=== PATIENT | male | born 1980 | race Two or more races ===

== ENCOUNTER 2021-03-21 17:30 | Inpatient (IN) | payer MEDICAID ==
[~2021-03-21] VITALS: Ht 172.7 cm; Wt 67.1 kg
[2021-03-21] MEDS ORDERED: IV NORMAL SALINE 1000 ML BAG IV ONE ×2 (17:45→18:30)
[2021-03-21 18:01] LABS: HEMATOCRIT 29.5 % (36.7-47.1); MEAN CORPUSCULAR HEMOGLOBIN 28.5 uug (23.8-33.4); MEAN CORPUSCULAR VOLUME 83.9 fL (73.0-96.2); PLATELET COUNT (AUTO) 286 K/uL (152-348)
[2021-03-21 18:12] LABS: CREATININE 0.7 mg/dL (0.6-1.3); POTASSIUM 4.5 mmol/L (3.5-5.1)
[2021-03-21 18:17] LABS: ETHANOL < 3 MG/DL (0-0)
[2021-03-21 18:23] LABS: BILIRUBIN,DIRECT 0.1 mg/dL (0.0-0.2); BILIRUBIN,TOTAL 0.4 mg/dL (0.2-1.0); TOTAL PROTEIN, SERUM 5.9 g/dL (6.4-8.2)
[2021-03-21] MEDS ORDERED: LACTULOSE 20 G/30 ML LIQUID UDC PO ONE (18:45)
--- NOTE | 2021-03-21 18:50 | NUR ---
Pt out of Er for CT scan.
[2021-03-21] MEDS ORDERED: LACTULOSE 20 G/30 ML LIQUID UDC ONE (19:15)
[2021-03-21] MEDS ORDERED: ONDANSETRON 4 MG/2 ML VIAL IV PRN (20:30)
--- NOTE | 2021-03-21 22:00 | NUR ---
paged Dr. Snowden regarding HR 120s sinus tach. states he will order IVF infusion at a slow rate
[2021-03-22] MEDS: IV 1/2NS 1000 ML 1,000 ML IV PRN ×2 (00:31→21:12)
--- NOTE | 2021-03-22 00:33 | NUR ---
patient's son (Goldy Manuel) phone# [phone]
--- NOTE | 2021-03-22 00:54 | NUR ---
Patient is resting in bed. Patient is pending inpatient transfer but no bed available at this time. Pt. admitted to Telemetry, under care of Dr. Sp Triana Dx: Altered Mental Status Belongs List completed
[2021-03-22 06:35] LABS: ALANINE AMINOTRANSFERASE 28 U/L (16-63); ALKALINE PHOSPHATASE 60 U/L (50-136); ASPARTATE AMINOTRANSFERASE 16 U/L (15-37); BILIRUBIN,TOTAL 0.1 mg/dL (0.2-1.0); CARBON DIOXIDE 25 mmol/L (21-32); CHLORIDE 106 mmol/L (98-107); CHOLESTEROL 122 mg/dL (<200); CREATININE 0.6 mg/dL (0.6-1.3); GLUCOSE 134 mg/dL (74-106); HDL CHOLESTEROL 20 mg/dL (40-60); IRON, SERUM 224 ug/dL (50-175); MAGNESIUM 2.1 mg/dL (1.8-2.4); POTASSIUM 4.2 mmol/L (3.5-5.1); TOTAL PROTEIN, SERUM 4.6 g/dL (6.4-8.2); TRIGLYCERIDES 406 MG/DL (30-150); UREA NITROGEN, BLOOD 43 mg/dL (7-18)
[2021-03-22 06:44] LABS: PHOSPHOROUS 3.4 mg/dL (2.5-4.9)
[2021-03-22] MEDS: PANTOPRAZOLE SODIUM 40 MG TABLET.DR PO SCH (07:00)
[2021-03-22 07:26] LABS: LIPASE 106 U/L (73-393)
--- NOTE | 2021-03-22 07:49 | NUR ---
PT IS IN BED #2A. PT WAS CLEANED IN BED AFTER B/M. PT IS SLEEPING NOW COMFORTABLY IN BED.
[2021-03-22] MEDS ORDERED: PANTOPRAZOLE SODIUM 40 MG TABLET.DR PO ONE (08:26)
[2021-03-22 08:32] LABS: MEAN CORPUSCULAR HEMOGLOBIN 28.9 uug (23.8-33.4); MEAN CORPUSCULAR VOLUME 84.7 fL (73.0-96.2); PLATELET COUNT (AUTO) 223 K/uL (152-348)
[2021-03-22 08:53] LABS: HEMATOCRIT 17.7 % (36.7-47.1)
--- NOTE | 2021-03-22 09:03 | NUR ---
DR BERNARD HERNANDEZ WAS NOTIFIED WITH PT's CRITICAL BLOOD TEST RESULTS.
[2021-03-22] MEDS: LACTULOSE 20 G/30 ML LIQUID UDC PO SCH ×2 (09:19→21:11)
[2021-03-22] MEDS ORDERED: LACTULOSE 20 G/30 ML LIQUID UDC ONE (09:33)
--- NOTE | 2021-03-22 12:05 | NUR ---
DR DIANA EVALUTED THE PT. DR CLARK WAS CALLED FOR CONSULT ACCORDING TO DR DIANA REQUEST.
[2021-03-22 16:02] LABS: *AMPHETAMINE, URINE POSITIVE (NEGATIVE); *CANNABINOID, URINE NEGATIVE (NEGATIVE); *COCCAINE, URINE NEGATIVE (NEGATIVE); *OPIATE, URINE NEGATIVE (NEGATIVE); *PHENCYCLIDINE SCREEN,URINE NEGATIVE (NEGATIVE)
[2021-03-22 16:31] LABS: LYMPHOCYTES % (MANUAL) 21 % (20-40); MONOCYTES % (MANUAL) 6 % (2-10); NEUTROPHILS % (MANUAL) 73 % (42-75)
--- NOTE | 2021-03-22 17:45 | NUR ---
TRANSFUSION OF 1 PRBC WAS PERFORMED ACCORDING TO DR ODELL AND DR RIVERS ORDERS. PT TOLERATED TO BLOOD TRANSFUSION WITHOUT COMPLICATIONS. SEE BLOOD TRANSFUSION RECORDS.
--- NOTE | 2021-03-22 17:45 | NUR ---
REPORT WAS GIVEN TO FURNITURE CRATER. PT WAS TRANSFERED TO ROOM #[id number].
--- NOTE | 2021-03-22 18:15 | NUR ---
PT was admitted from ER to Tele transported in ER bed. PT is AAOx4 Maltese speaking with some Czech. PT S/P Blood transfusion 1 unit RBC in ER no Adverse reaction for H&H of 6.0 17.4 and noted V/S taken PT is SR tachy safety measures in place bed in low position , call light at reach
[2021-03-22] MEDS: BLOOD SUGAR DIAGNOSTIC 1 EACH STRIP VI SCH ×2 (18:34→23:52)
[2021-03-22 18:58] VITALS: BP 118/73
[2021-03-22 20:00] VITALS: BP 127/77
--- NOTE | 2021-03-22 20:00 | NUR ---
Received patient lying in bed. Awake and oriented X4, but appears to be lethargic. Pt is swazi speaking with limited Polish. 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 Established nurse-patient rapport. Oriented patient to room, bed and call light button. On telemonitor, showing sinus tachycardia with HR of 124bpm. IV access on L UA 18 gauge, patent and intact. Started on IVF, 0.45% NS at 60cc/hr. No skin issue noted. Safety precautions initiated. Call light button and bedside table with reach. Will continue to monitor.
[2021-03-23] VITALS (16 sets, daily range): BP systolic 109–141; BP diastolic 46–64
[2021-03-23] MEDS: MORPHINE SULFATE 2 MG/1 ML DISP.SYRIN IV PRN (00:42)
[2021-03-23] MEDS: BLOOD SUGAR DIAGNOSTIC 1 EACH STRIP VI SCH ×3 (06:00→17:21)
[2021-03-23] MEDS: PANTOPRAZOLE SODIUM 40 MG TABLET.DR PO SCH (06:04)
--- NOTE | 2021-03-23 06:05 | NUR ---
Patient slept through the night. Patient is confused and lethargic. Per [employer], patient was seen kneeling on the bed, grabbing on to side rail. Noted to be very pale and diaphoretic, rapid response team was activated. No resuscitation intervention was done as pt had normal V/S and responsive. V/S taken and within normal limits, however, HR was 120bpm. Sinus Tachy on tele. Partial bed bath given by [employer]. IV access was dislodged. Will attempt to reinsert. Refused AM meds. Will endorse to day shift.
[2021-03-23 07:11] LABS: MEAN CORPUSCULAR HEMOGLOBIN 30.5 uug (23.8-33.4); MEAN CORPUSCULAR VOLUME 86.8 fL (73.0-96.2); PLATELET COUNT (AUTO) 185 K/uL (152-348)
[2021-03-23 07:37] LABS: HEMATOCRIT 12.5 % (36.7-47.1)
--- NOTE | 2021-03-23 07:42 | NUR ---
Dr telephone lineman notified regarding critical labs. Hgb of 4.5 and hct of 12.6. Dr ordered to transfuse 2PRBS STAT.
--- NOTE | 2021-03-23 07:43 | NUR ---
IV access inserted on R UA, patent and intact, infusing 0.45% N.S at 60 cc/hr.
--- NOTE | 2021-03-23 08:00 | NUR ---
AWAKE ALERT BUT SOMEWHAT LETHARGIC. HGB 4.4 WILL NOTIFY MD. NO SIGNS OF EXTERNAL BLEEDING. KEPT NPO FOR FURTHER GI MANAGEMENT
[2021-03-23] MEDS: NICOTINE 21 MG/24HR PATCH TD SCH (08:22)
[2021-03-23] MEDS ORDERED: PANTOPRAZOLE SODIUM 40 MG VIAL IV SCH ×2 (09:00→21:00)
[2021-03-23] MEDS: LACTULOSE 20 G/30 ML LIQUID UDC PO SCH (09:00)
[2021-03-23 09:37] LABS: CARBON DIOXIDE 21 mmol/L (21-32); CHLORIDE 105 mmol/L (98-107); CREATININE 0.6 mg/dL (0.6-1.3); GLUCOSE 135 mg/dL (74-106); MAGNESIUM 1.9 mg/dL (1.8-2.4); PHOSPHOROUS 2.4 mg/dL (2.5-4.9); POTASSIUM 3.9 mmol/L (3.5-5.1); UREA NITROGEN, BLOOD 34 mg/dL (7-18)
--- NOTE | 2021-03-23 10:43 | NUR ---
SEEN BY DR DIANA FOR FOLLOW-UP SEE NOTES
--- NOTE | 2021-03-23 11:00 | NUR ---
MIDLINE INSERTION DONE AT BEDSIDE UNDER LEFT UPPER ARM
--- NOTE | 2021-03-23 12:28 | NUR ---
BLOOD TRANSFUSION STARTED LEFT UPPER ARM MID LINE. OBSERVED
--- NOTE | 2021-03-23 12:52 | NUR ---
NO SS OF BLOOD TRANSFUSION RREACTION, CONTINUE WITH TX
--- NOTE | 2021-03-23 14:37 | NUR ---
PLAN EGD THIS PM AT [address] CAICEDO. CONTINUE WITH BLOOD TRANSFUSION ORDERED
--- NOTE | 2021-03-23 15:09 | NUR ---
bag of blood completed without transfusion reaction. V/S stable. afebrile. kept npo for EGD at 1800
--- NOTE | 2021-03-23 15:33 | NUR ---
second unit of blood started as ordered
[2021-03-23] MEDS ORDERED: OMEP20TA5 PO (15:59)
[2021-03-23] MEDS ORDERED: FERR325T28 PO (16:14)
[2021-03-23] MEDS ORDERED: SODIUM PHOSPHATE MM 15 MMOL in IV NORMAL SALINE 250 ML IV ONE (17:00)
--- NOTE | 2021-03-23 17:42 | NUR ---
TO OR FOR EGD
[2021-03-23] MEDS ORDERED: EPINEPHRINE 1 MG/1 ML AMP ONE (18:38)
[2021-03-23] MEDS ORDERED: EPINEPHRINE 1:10,000 1 MG/10 ML DISP.SYRIN ONE (18:38)
[2021-03-23] MEDS ORDERED: PANTOPRAZOLE SODIUM IV 80 MG in IV DEXTROSE 5% 100 ML IV ONE (21:30)
[2021-03-23] MEDS: IV 1/2NS 1000 ML 1,000 ML IV PRN (21:41)
[2021-03-23] MEDS ORDERED: PANTOPRAZOLE SODIUM IV 80 MG in IV DEXTROSE 5% 500 ML IV SCH (22:00)
[2021-03-24] VITALS (16 sets, daily range): BP systolic 102–131; BP diastolic 42–74
[2021-03-24] MEDS: BLOOD SUGAR DIAGNOSTIC 1 EACH STRIP VI SCH ×5 (00:40→21:18)
[2021-03-24] MEDS: METOCLOPRAMIDE HCL 10 MG/2 ML VIAL IV SCH ×3 (05:07→21:19)
[2021-03-24] MEDS ORDERED: PANTOPRAZOLE SODIUM 40 MG TABLET.DR PO SCH (07:00)
--- NOTE | 2021-03-24 08:00 | NUR ---
AWAKE ALERT AND ORIENTED X3, NO SIGNS OF PAIN OR SOB. COMPLETED 5TH BAGS OF BLOOD TRANSFUSION WITHOUT TRANSFUSION REACTION. KEPT NPO TILL FURTHER ORDERS. ST ON MONITOR
[2021-03-24] MEDS ORDERED: PANTOPRAZOLE SODIUM IV 80 MG in IV DEXTROSE 5% 500 ML IV SCH (08:15)
[2021-03-24] MEDS: NICOTINE 21 MG/24HR PATCH TD SCH (08:19)
[2021-03-24] MEDS ORDERED: PANTOPRAZOLE SODIUM IV 40 MG in IV DEXTROSE 5% 100 ML IV SCH (08:30)
[2021-03-24] MEDS ORDERED: LACTULOSE 20 G/30 ML LIQUID UDC PO SCH (09:00)
[2021-03-24 09:04] LABS: HEMATOCRIT 21.8 % (36.7-47.1); MEAN CORPUSCULAR HEMOGLOBIN 28.5 uug (23.8-33.4); MEAN CORPUSCULAR VOLUME 82.3 fL (73.0-96.2); PLATELET COUNT (AUTO) 130 K/uL (152-348)
[2021-03-24 09:41] LABS: CARBON DIOXIDE 27 mmol/L (21-32); CHLORIDE 106 mmol/L (98-107); CREATININE 0.6 mg/dL (0.6-1.3); GLUCOSE 106 mg/dL (74-106); MAGNESIUM 2.2 mg/dL (1.8-2.4); PHOSPHOROUS 2.7 mg/dL (2.5-4.9); POTASSIUM 3.8 mmol/L (3.5-5.1); UREA NITROGEN, BLOOD 19 mg/dL (7-18)
--- NOTE | 2021-03-24 12:00 | NUR ---
NO ACUTE CHANGE FROM MORNING ASSESSMENT. SEEN BY DR DIANA AND ADVISED TO START ON SOFT DIET
--- NOTE | 2021-03-24 14:44 | NUR ---
RESTING COMFORTABLY IN BED NO SS OF PAIN OR SOB SR/ST ON MONITOR 77-119/MIN. TOLERATING SOFT DIET, NO SIGNS OF EXTERNAL BLEEDING NOTED
[2021-03-24] MEDS: LACTULOSE 20 G/30 ML LIQUID UDC PO SCH (16:49)
--- NOTE | 2021-03-24 19:30 | NUR ---
Received patient lying down in bed. Alert and oriented x3, lethargic. Sinus rhythm 98 on tele monitor. On 3 L nasal cannula saturating 100%. Midline of left upper arm intact and patent. No signs of pain or distress. Bed in the lowest position, call light within reach. Will continue to monitor.
[2021-03-24] MEDS: PANTOPRAZOLE SODIUM 40 MG VIAL IV SCH (20:17)
[2021-03-25] VITALS (12 sets, daily range): BP systolic 99–148; BP diastolic 50–94
[2021-03-25] MEDS: IV 1/2NS 1000 ML 1,000 ML IV PRN (01:16)
[2021-03-25] MEDS: METOCLOPRAMIDE HCL 10 MG/2 ML VIAL IV SCH ×3 (05:41→21:46)
--- NOTE | 2021-03-25 06:36 | NUR ---
Patient slept soundly through the night. Sinus rhythm 98 on tele monitor. On room air saturating 100%. All needs anticipated and attended to. No signs of pain or distress. Bed in the lowest position, call light within reach.
[2021-03-25 06:41] LABS: MEAN CORPUSCULAR HEMOGLOBIN 28.4 uug (23.8-33.4); MEAN CORPUSCULAR VOLUME 83.2 fL (73.0-96.2); PLATELET COUNT (AUTO) 134 K/uL (152-348)
[2021-03-25 07:41] LABS: CARBON DIOXIDE 25 mmol/L (21-32); CHLORIDE 104 mmol/L (98-107); CREATININE 0.5 mg/dL (0.6-1.3); GLUCOSE 103 mg/dL (74-106); MAGNESIUM 2.4 mg/dL (1.8-2.4); PHOSPHOROUS 2.8 mg/dL (2.5-4.9); POTASSIUM 3.6 mmol/L (3.5-5.1); UREA NITROGEN, BLOOD 13 mg/dL (7-18)
[2021-03-25 09:00] LABS: HEMATOCRIT 19.8 % (36.7-47.1); NEUTROPHILS % (MANUAL) 0 % (42-75)
[2021-03-25] MEDS: BLOOD SUGAR DIAGNOSTIC 1 EACH STRIP VI SCH ×4 (09:14→20:36)
[2021-03-25] MEDS: LACTULOSE 20 G/30 ML LIQUID UDC PO SCH ×2 (09:14→17:21)
[2021-03-25] MEDS: PANTOPRAZOLE SODIUM 40 MG VIAL IV SCH ×2 (09:14→20:30)
[2021-03-25] MEDS: NICOTINE 21 MG/24HR PATCH TD SCH (09:15)
--- NOTE | 2021-03-25 10:41 | NUR ---
Received Critical lab value of hemoglobin 6.8 and hct 19.8. Notified . Order inputted for 1 unit packed RBCs.
--- NOTE | 2021-03-25 11:28 | NUR ---
Clinical Social Work Note SW consult was requested for substance use. Per Dr. Landin, patient has a history of alcohol use. SW met with 40 year old male who is alert and oriented x3. Patient presents with a withdrawn mood and congruent affect. SW inquired about patient's alcohol use. Patient stated that he does not drink alcohol, but he does use substances. 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 Patient stated that he was previously using methamphetamine daily. SW inquired if patient has received treatment for substance use and patient stated no and that he has stop using on his own. Patient was provided with a brief substance abuse intervention and referred to the following substance abuse programs: [facility] ([phone]); [facility] [address] [place] [address] ([phone]); [address] [place] [address] ([phone]); [facility] ([phone]); [facility] ([phone]); [facility] ([phone]); [facility] ([phone]). Patient stated that he was going to look through the resources provided.
--- NOTE | 2021-03-25 16:57 | NUR ---
1 unit of packed red blood cells transfused from 1350 to 1653. no transfusion reaction noted.
[2021-03-25] MEDS: FERROUS SULFATE 325 MG TABEC PO SCH (17:37)
--- NOTE | 2021-03-25 18:11 | NUR ---
Pt had BM soft, dark brown- black. Some red tint noted dispersed in the water. MD notified.
[2021-03-25] MEDS ORDERED: LIDOCAINE-MPF 2% 5 ML VIAL IJ ONE (18:33)
[2021-03-25] MEDS ORDERED: SUCCINYLCHOLINE CHLORIDE 200 MG/10 ML VIAL IV ONE (18:33)
[2021-03-25] MEDS ORDERED: PROPOFOL 200 MG/20 ML BOTTLE IV ONE (18:33)
[2021-03-25 22:07] LABS: HEMATOCRIT 22.4 % (36.7-47.1)
[2021-03-26 00:24] VITALS: BP 148/63
[2021-03-26] MEDS: IV 1/2NS 1000 ML 1,000 ML IV PRN ×2 (01:02→18:39)
[2021-03-26 04:39] VITALS: BP 106/48
[2021-03-26] MEDS: METOCLOPRAMIDE HCL 10 MG/2 ML VIAL IV SCH ×3 (05:50→21:10)
[2021-03-26] MEDS: BLOOD SUGAR DIAGNOSTIC 1 EACH STRIP VI SCH ×4 (06:34→20:22)
[2021-03-26 06:52] LABS: HEMATOCRIT 23.8 % (36.7-47.1); MEAN CORPUSCULAR HEMOGLOBIN 29.5 uug (23.8-33.4); MEAN CORPUSCULAR VOLUME 84.8 fL (73.0-96.2); PLATELET COUNT (AUTO) 178 K/uL (152-348)
--- NOTE | 2021-03-26 07:07 | NUR ---
Patient slept well through out the night. On RA.No s/s of distress noted. NSr on Tele.Denies pain or discomfort.Midline on Lt upper arm patent and intact with IVF infusing well.BS this morning 98. All needs anticipated and met accordingly.Endorse to morning shift.
[2021-03-26 07:18] LABS: CREATININE 0.7 mg/dL (0.6-1.3); MAGNESIUM 2.5 mg/dL (1.8-2.4); PHOSPHOROUS 3.7 mg/dL (2.5-4.9); POTASSIUM 3.8 mmol/L (3.5-5.1)
[2021-03-26] MEDS: FERROUS SULFATE 325 MG TABEC PO SCH ×2 (08:09→16:29)
[2021-03-26] MEDS: NICOTINE 21 MG/24HR PATCH TD SCH (08:10)
[2021-03-26] MEDS: PANTOPRAZOLE SODIUM 40 MG VIAL IV SCH ×2 (08:10→20:23)
[2021-03-26] MEDS: LACTULOSE 20 G/30 ML LIQUID UDC PO SCH ×2 (08:10→16:29)
[2021-03-26 12:00] VITALS: BP 122/69
[2021-03-26 16:05] VITALS: BP 132/64
[2021-03-26 21:00] VITALS: BP 120/64
[2021-03-27] MEDS: MORPHINE SULFATE 2 MG/1 ML DISP.SYRIN IV PRN (00:14)
[2021-03-27 00:21] VITALS: BP 118/69
--- NOTE | 2021-03-27 00:32 | NUR ---
Patient alert and able to make need known.No s/s of distress noted. On Ra.NSr on Tele. Able to use bathroom ,voided well. C/o headache and abd'l pain. Medicated with morphine with good result.Patient NPO post midnight .Midline on left upper arm patent and intact with IVf running well. Call light with in reach.Will continue to monitor.
[2021-03-27 04:11] VITALS: BP 121/72
[2021-03-27] MEDS: METOCLOPRAMIDE HCL 10 MG/2 ML VIAL IV SCH ×2 (05:26→14:52)
[2021-03-27 05:33] LABS: HEMATOCRIT 26.9 % (36.7-47.1); MEAN CORPUSCULAR HEMOGLOBIN 29.1 uug (23.8-33.4); MEAN CORPUSCULAR VOLUME 85.3 fL (73.0-96.2); PLATELET COUNT (AUTO) 235 K/uL (152-348)
[2021-03-27 05:45] LABS: CARBON DIOXIDE 25 mmol/L (21-32); CHLORIDE 105 mmol/L (98-107); CREATININE 0.6 mg/dL (0.6-1.3); GLUCOSE 105 mg/dL (74-106); MAGNESIUM 2.3 mg/dL (1.8-2.4); PHOSPHOROUS 3.7 mg/dL (2.5-4.9); UREA NITROGEN, BLOOD 10 mg/dL (7-18)
[2021-03-27] MEDS: BLOOD SUGAR DIAGNOSTIC 1 EACH STRIP VI SCH ×2 (06:46→12:05)
--- NOTE | 2021-03-27 07:20 | NUR ---
Patient asleep in bed. On room air. No signs of acute distress. NSR on roll cleaner. Call light within reach. Bed alarm on for safety. Will continue to monitor.
[2021-03-27 08:23] VITALS: BP 125/70
[2021-03-27] MEDS: LACTULOSE 20 G/30 ML LIQUID UDC PO SCH ×2 (08:58→09:00)
[2021-03-27] MEDS: FERROUS SULFATE 325 MG TABEC PO SCH ×2 (08:58→09:00)
[2021-03-27] MEDS: PANTOPRAZOLE SODIUM 40 MG VIAL IV SCH (08:58)
[2021-03-27] MEDS: NICOTINE 21 MG/24HR PATCH TD SCH (08:59)
[2021-03-27 12:39] VITALS: BP 108/68
[2021-03-27] MEDS ORDERED: EPINEPHRINE 1 MG/1 ML AMP ONE (12:39)
--- NOTE | 2021-03-27 14:29 | NUR ---
Received patient from surgery/ recovery. Patient AOx4. On room air, saturating 98%. ESTEFANIA 115/72. HR 77. Patient denies pain/ discomfort. Will continue to monitor.
[2021-03-27] MEDS ORDERED: LACT10SO7 PO (15:17)
[2021-03-27] MEDS ORDERED: LIDOCAINE-MPF 2% 5 ML VIAL IJ ONE (16:24)
[2021-03-27] MEDS ORDERED: PROPOFOL 200 MG/20 ML BOTTLE IV ONE (16:24)
[2021-03-27] MEDS ORDERED: SEVOFLURANE 250 ML BOTTLE IH ONE (16:24)
[2021-03-27] MEDS ORDERED: SUCCINYLCHOLINE CHLORIDE 200 MG/10 ML VIAL IV ONE (16:24)
--- NOTE | 2021-03-27 16:40 | NUR ---
Discharged patient to home. AOx4. On room air. No signs of acute distress. Patient denies pain/ discomfort. Vital signs WNL. IV access removed. ID armband removed. Discharged instructions given to patient with at bedside. Belongings accounted for and belongings list signed. Patient left hospital via private car with .
== END 2021-03-27 16:25 | disposition home or self-care (01) | DRG 242 ==
LOC: ER 17:33 → TRANSITION 03-22 09:03 → TELE3 03-22 17:24
PROVIDERS: ADMIT Student in an Organized Health Care Education/Training Program; ATTEND Student in an Organized Health Care Education/Training Program
PROC: 30233N1 Transfusion of Nonautologous Red Blood Cells into Peripheral Vein, Percutaneous Approach (ICD-10-PCS; principal; 2021-03-22)
PROC: 05H633Z Insertion of Infusion Device into Left Subclavian Vein, Percutaneous Approach (ICD-10-PCS; 2021-03-23)
PROC: 3E0G8GC Introduction of Other Therapeutic Substance into Upper GI, Via Natural or Artificial Opening Endoscopic (ICD-10-PCS; 2021-03-23)
PROC: 0W3P8ZZ Control Bleeding in Gastrointestinal Tract, Via Natural or Artificial Opening Endoscopic (ICD-10-PCS; 2021-03-23)
PROC: B547ZZA Ultrasonography of Left Subclavian Vein, Guidance (ICD-10-PCS; 2021-03-23)
PROC: 0DJ08ZZ Inspection of Upper Intestinal Tract, Via Natural or Artificial Opening Endoscopic (ICD-10-PCS; 2021-03-27)
DX: K22.6 Gastro-esophageal laceration-hemorrhage syndrome (principal); K72.90 Hepatic failure, unspecified without coma; E44.0 Moderate protein-calorie malnutrition; K74.60 Unspecified cirrhosis of liver; D62 Acute posthemorrhagic anemia; F10.10 Alcohol abuse, uncomplicated; E11.9 Type 2 diabetes mellitus without complications; D72.829 Elevated white blood cell count, unspecified; F17.210 Nicotine dependence, cigarettes, uncomplicated; Y90.0 Blood alcohol level of less than 20 mg/100 ml; Z68.22 Body mass index [BMI] 22.0-22.9, adult; Z20.822 Contact with and (suspected) exposure to COVID-19
CPT/HCPCS: 36415; 70030-TC; 70450; 71045; 83550; 83690; 83735; 84100; 85018; 85025; 85730; 86850; 86900; 86901; 86920; A4217; A4663; C9113; G0378; G0480; J0171; J0330; J2270; J2765; J3490; J7030; J7040; J7050; J7060; J7120; P9016; U0003

== ENCOUNTER 2022-01-28 14:40 | Emergency (ER) | payer MEDICAID ==
[~2022-01-28] VITALS: Ht 172.7 cm; Wt 72.6 kg
[~2022-01-28 14:40] MED LIST: FERR325T28 PO; LACT10SO7 PO; OMEP20TA5 PO
[2022-01-28] MEDS ORDERED: CIPR5DRO EACHEYE (15:27)
--- NOTE | 2022-01-28 15:43 | NUR ---
Patient discharged to home in stable condition. Written and verbal after care instructions given. Patient verbalizes understanding of instructions. Stressed follow up or return to ER for worsening s/s.
== END 2022-01-28 15:43 | disposition home or self-care (01) ==
LOC: ER 14:41
DX: H10.9 Unspecified conjunctivitis (principal); F10.21 Alcohol dependence, in remission; Z88.6 Allergy status to analgesic agent
CPT/HCPCS: A4663